=== PATIENT | female | born 2000 | race Caucasian/White ===

== ENCOUNTER 2020-06-04 14:28 | Outpatient (REF) | payer OTHER, SELFPAY ==
[2020-06-04 17:22] LABS: Syphilis Screen Nonreactive (Nonreactive)
[2020-06-05 13:50] LABS: BV Int Neg Control Negative (Negative); BV Int Pos Control Positive (Positive)
[2020-06-05 15:30] LABS: CT PCR NOT DETECTED (Not Detect.); NG PCR NOT DETECTED (Not Detect.)
[2020-06-07 08:05] LABS: HBsAGNum1 0.17 S/CO (0.00-0.99); Hepatitis B Surface Antigen Negative (Negative)
[2020-06-07 08:33] LABS: HIV AB/AG Nonreactive (Nonreactive); HIV Num 1 0.16 S/CO (0.00-0.99); ~HepC Num1 0.08 S/CO (0.00-0.79); ~Hepatitis C Antibody Nonreactive (Nonreactive)
== END 2020-06-04 14:29 | disposition home or self-care (01) ==
LOC: HO.LAB 14:28
PROVIDERS: Referring Provider Internal Medicine Cardiovascular Disease; Visit Provider Advanced Practice Midwife
DX: Z01.419 Encounter for gynecological examination (general) (routine) without abnormal findings (principal); Z30.09 Encounter for other general counseling and advice on contraception; Z20.2 Contact with and (suspected) exposure to infections with a predominantly sexual mode of transmission
CPT/HCPCS: 86780; 86803; 87340; 87389; 87480; 87491; 87510; 87591; 87660

== ENCOUNTER 2021-06-07 15:13 | Outpatient (REF) | payer OTHER, SELFPAY ==
[2021-06-08 13:10] LABS: BV Int Neg Control Negative (Negative); BV Int Pos Control Positive (Positive)
[2021-06-08 13:27] LABS: CT PCR NOT DETECTED (Not Detect.); NG PCR NOT DETECTED (Not Detect.)
== END 2021-06-07 15:14 | disposition home or self-care (01) ==
LOC: HO.LAB 15:13
PROVIDERS: Visit Provider Advanced Practice Midwife
DX: Z01.411 Encounter for gynecological examination (general) (routine) with abnormal findings (principal); N89.8 Other specified noninflammatory disorders of vagina; N92.1 Excessive and frequent menstruation with irregular cycle; Z20.2 Contact with and (suspected) exposure to infections with a predominantly sexual mode of transmission; Z97.5 Presence of (intrauterine) contraceptive device
CPT/HCPCS: 87480; 87491; 87510; 87591; 87660

== ENCOUNTER → 2021-10-25 14:58 | Outpatient (BNVA) | payer OTHER, SELFPAY | PROVIDERS: Referring Provider Internal Medicine; Visit Provider Internal Medicine Cardiovascular Disease | DX: Z01.810 Encounter for preprocedural cardiovascular examination (principal); I47.1 Supraventricular tachycardia | CPT/HCPCS: 93005 ==

== ENCOUNTER 2022-10-19 14:11 | Outpatient (REF) | payer OTHER, SELFPAY ==
[2022-10-20 02:27] LABS: CT PCR NOT DETECTED (Not Detect.); NG PCR NOT DETECTED (Not Detect.)
[2022-10-20 09:06] LABS: BV Int Neg Control Negative (Negative); BV Int Pos Control Positive (Positive)
== END 2022-10-19 14:12 | disposition home or self-care (01) ==
LOC: HO.LNP 14:11
PROVIDERS: PCP Internal Medicine; Visit Provider Advanced Practice Midwife
DX: Z01.419 Encounter for gynecological examination (general) (routine) without abnormal findings (principal); N89.8 Other specified noninflammatory disorders of vagina; Z20.2 Contact with and (suspected) exposure to infections with a predominantly sexual mode of transmission
CPT/HCPCS: 0353U; 87480; 87510; 87660; 88142

== ENCOUNTER → 2022-10-31 15:00 | Outpatient (BNVA) | payer OTHER, SELFPAY | PROVIDERS: PCP Internal Medicine; Referring Provider Internal Medicine; Visit Provider Internal Medicine Cardiovascular Disease | DX: I47.1 Supraventricular tachycardia (principal) | CPT/HCPCS: 93005 ==

== ENCOUNTER → 2022-12-12 09:25 | Outpatient (BNVA) | payer OTHER, SELFPAY | PROVIDERS: PCP Internal Medicine; Visit Provider Advanced Practice Midwife | DX: Z30.46 Encounter for surveillance of implantable subdermal contraceptive (principal) | CPT/HCPCS: 11982; 58300; 58301; 81025 ==

== ENCOUNTER → 2022-12-20 08:08 | Outpatient (BNVA) | payer OTHER, SELFPAY | PROVIDERS: PCP Internal Medicine; Referring Provider Advanced Practice Midwife; Visit Provider Surgery ==

== ENCOUNTER 2022-12-26 15:14 | Outpatient (REF) | payer OTHER, SELFPAY ==
[2022-12-27 14:31] LABS: CT PCR NOT DETECTED (Not Detect.); NG PCR NOT DETECTED (Not Detect.)
[2022-12-28 09:20] LABS: BV Int Neg Control Negative (Negative); BV Int Pos Control Positive (Positive)
== END 2022-12-26 15:15 | disposition home or self-care (01) ==
LOC: HO.LAB 15:14
PROVIDERS: PCP Internal Medicine; Visit Provider Advanced Practice Midwife
DX: N90.89 Other specified noninflammatory disorders of vulva and perineum (principal); N89.8 Other specified noninflammatory disorders of vagina
CPT/HCPCS: 0353U; 81003; 87255; 87480; 87510; 87660

== ENCOUNTER 2022-12-26 16:01 | Outpatient (REF) | payer OTHER, SELFPAY | END 2022-12-26 16:02 | disposition home or self-care (01) | LOC: HO.LNP 16:01 | PROVIDERS: Visit Provider Advanced Practice Midwife | DX: Z13.89 Encounter for screening for other disorder (principal) ==

== ENCOUNTER 2023-01-09 14:57 | Outpatient (REF) | payer OTHER, SELFPAY | END 2023-01-09 14:58 | disposition home or self-care (01) | LOC: HO.LNP 14:57 | PROVIDERS: PCP Internal Medicine; Visit Provider Advanced Practice Midwife | DX: Z30.017 Encounter for initial prescription of implantable subdermal contraceptive (principal); N76.3 Subacute and chronic vulvitis | CPT/HCPCS: 11981; 81025; 87070; 87077; 87102; 87147; 87186; 87205; J7307 ==

== ENCOUNTER 2023-02-07 15:37 | Outpatient (AMB) | payer OTHER, SELFPAY ==
--- NOTE | 2023-02-07 15:38 | A.OFFVIS_ITS ---
Intake Vital Signs 02/07/23 15:39 Height 5 ft 9 in Weight 177 lb BMI 26.1 BP 112/70 Intake Visit Reasons: Nexplanon Check/30 mins Intake Note: The patient agreed to use of a medical or surgical instrument maker during this encounter. Scribed for CINTHIA Chen by Haley Sol, medical or surgical instrument maker, on 02/07/2023 at 3:44 pm EST. Allergies No Known Allergies Allergy (Verified 02/07/23 15:38) Is last menstrual period known: Yes Last menstrual period: 01/22/23 HPI HPI Comments History of Present Illness Details She is here for Nexplanon surveillance, and follow up for her chronic vulvar irritation. Fungal culture pending on the last of 4 weekly reports. Reports vulvar irritation, uses Aquaphor and believes it is improving. Vulvar check/eval. offered; she declines. She is doing well with Nexplanon. No concerns with bleeding. Site has healed well. Recent UTI treated by her PCP. [facility] Medical History (Updated 02/07/23 @ 16:19 by Haley Sol) Aftrcre teeth/oral/dig sys surg Chronic vulvitis Palpitation SVT (supraventricular tachycardia) Social History Alcohol intake: current Alcohol intake frequency: a few times a month Alcohol type: beer and wine Patient Tobacco Use Status: Never used Tobacco Gender identity: Female Female Reproductive History Menstrual Age of Menarche: 14 Date of last menstrual period: 01/22/23 control method: implanted (Nexplanon 01/09/23) Total pregnancies: 0 Physical Exam Vital Signs: Last Vital Signs BP 112/70 02/07/23 15:39 BMI result Body Mass Index 26.1 Const General: cooperative, healthy appearing, comfortable, no acute distress, well developed, alert and awake Extrem Other: implant is palpable, site is well healed and non tender. General: Yes normal to inspection Assessment & Plan Assessment & Plan (1) Chronic vulvitis: Code(s): N76.3 - Subacute and chronic vulvitis (2) Encounter for surveillance of Nexplanon subdermal contraceptive: Code(s): Z30.46 - Encounter for surveillance of implantable subdermal contraceptive Plan: Discussed: Monitor periods and weight. Maintain a healthy lifestyle including a well ken dana diet and routine exercise. Instructed to contact office with any prolonged or heavy bleeding for further recommendations, Instructed to always use condoms for STD prevention. Recommend organic or hypoallergenic menstrual pads and coat with Aquaphor. All of her questions and concerns were addressed to the best of my ability and shared decision making. She is agreeable to plan of care. Coding Level of Care Code Est Pt Level 3 (24503) Diagnoses Chronic vulvitis N76.3 Encounter for surveillance of Nexplanon subdermal contraceptive Z30.46
[2023-02-07 15:39] VITALS: BP 112/70; BMI 26.1
== END 2023-02-07 16:19 | disposition home or self-care (01) ==
LOC: HO.HWS 15:37
PROVIDERS: PCP Internal Medicine; Visit Provider Advanced Practice Midwife
DX: N76.3 Subacute and chronic vulvitis (principal); Z30.46 Encounter for surveillance of implantable subdermal contraceptive
CPT/HCPCS: 99213

== ENCOUNTER → 2023-02-07 15:37 | Outpatient (BNVA) | payer OTHER, SELFPAY | PROVIDERS: PCP Internal Medicine; Visit Provider Advanced Practice Midwife ==

== ENCOUNTER 2023-11-05 14:47 | Outpatient (AMB) | payer OTHER, SELFPAY ==
--- NOTE | 2023-11-05 14:50 | A.OFFVIS_ITS ---
Vital Signs 11/05/23 14:52 Height 5 ft 9 in Weight 187 lb BMI 27.6 BP 108/72 Intake Visit Reasons: annual Sheriff Sergeant Required: No Information Interpreted: non-clinical & clinical Small Business Banking Officer: Small Business Banking Officer Present (Markosyn) Allergies No Known Allergies Allergy (Verified 11/05/23 14:53) Medication List - Last Reconciled 11/05/23 by Mikayla Pacheco CNM diphenhydramine HCl (Benadryl) 25 mg PO Q6H PRN etonogestrel (Nexplanon) subdermal fexofenadine (Vero Allergy) 180 mg PO DAILY Is last menstrual period known: No (no menses Nexplanon) Post menopausal: No HPI HPI annual: Details: 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 She is open to testing she has not having any issues though she has her 3rd Nexplanon in and she is happy with it she once in a while being gets a random period, But it is okay and she gets a little warning. She recently had new nipple piercings please so her nipples are normal sensitive. Her previous Nexplanon needed to be by surgery because it is a little bit deep. [facility] Medical History (Updated 11/05/23 @ 15:36 by Mikayla Pacheco CNM) Hx of drainage of abscess Chronic vulvitis SVT (supraventricular tachycardia) Palpitation Aftrcre teeth/oral/dig sys surg Social History (Updated 11/05/23 @ 14:55 by DORIAN Martins) Alcohol intake: current Alcohol intake frequency: a few times a month Alcohol type: beer and wine Patient Tobacco Use Status: Never used Tobacco e-Cigarette/Vaping Use: Currently Using Gender identity: Female Female Reproductive History Menstrual Age of Menarche: 14 Duration of menses: 3-5 days control method: implanted Total pregnancies: 0 Date of last pap smear: 10/20/22 (negative) History of abnormal pap smear: No Physical Exam Vital Signs: Last Vital Signs BP 108/72 11/05/23 14:52 BMI result Body Mass Index 27.6 Const Other: Patient has Nexplanon is currently in her right arm and it is again somewhat deep to palpation. This is her 3rd. General: healthy appearing, comfortable, no acute distress, well developed and alert Nutritional Appearance: average body habitus Orientation/consciousness: patient oriented x3 Limitations: no limitations HEENT Head: Yes normocephalic Neck Neck: Yes normal visual inspection Chest Chest palpation & inspection: normal inspection of the chest Breast/axilla inspection: normal inspection of the breasts and normal inspection of the axillae Breast/axilla palpation: normal palpation of the breasts and normal palpation of the axillae Resp Effort & Inspection: normal respiratory effort GI Inspection: Yes normal to inspection, No Abdominal wall edema and No distended Palpation (GI): Soft to palpation and nontender Other: There is a tiny little white Fissure in the epithelium at the introitus consistent with chronic moisture however the patient says she does not wear panty liners and does not have any issue with increased discharge. Its not painful and not itchy. It is absolutely not consistent with a herpetic lesion. Discussed that sometimes if the whitish area were to expand and spread it might be consistent something called lichen sclerosis what it is not symptomatic were consistent with that at this moment. Nulliparous cervix pink and healthy with normal appearing healthy mucous, uterus small deep difficult to palpate completely but not enlarged and nontender good tone with Kegel. General: Yes bladder normal to palpation External Female Exam: normal external appearance and normal appearance of the urethra Speculum Exam - Vagina: normal appearance of the vagina, normal palpation and normal vaginal discharge Speculum Exam - Cervix: normal appearance of the cervix, normal palpation and nontender Bimanual exam- vagina & uterus: normal bimanual exam, normal palpation, uterine size normal, bladder normal to palpation, consistency normal, normal palpation, uterine mobility normal, uterine shape normal, No Cervical tenderness present, non-tender and no cervical motion tenderness Bimanual Exam- Adnexa, other: normal adnexae, no masses, normal and No adnexal tenderness Neuro General: patient oriented x3 Results Reviewed Results Reviewed: Previous Pap negative. Name: Sri Jackson Age/Sex: 22/F Attending: Mikayla Pacheco CNM : 2000 Submitted by: Mikayla Pacheco CNM Copies to: Kannan Hart MD MR #: [id number] Status: DEP REF Collected: 10/19/22 Location: [facility] Received: 10/20/22 Interpretation Satisfactory for evaluation. Negative for intraepithelial lesion or malignancy. Clinical Information LMP: 10/15/22 Previous PAP test: 06/09/19, WNL Material Received ThinPrep-Cervical Copies To Mikayla Pacheco [address] Xavier [address] [place] [id number] Kannan Hart MD [address] [place] [address] Electronically Signed By: Tere Chew 10/30/22 9813 The Pap Test is a screening procedure with the inherent possibility of both false negative and false positive results. Results should be interpreted in the context of historic and current clinical findings. Reliability of the Pap Test is enhanced by performing the test on a regular repetitive basis. Patient: Sri Jackson Age/Sex: 22/F MR#: [id number] Page 1 of 1 Assessment & Plan Assessment & Plan (1) Encounter for surveillance of Nexplanon subdermal contraceptive: Comment: Previous Nexplanon inserted 01/02/2020 her BM. Removed by surgery. Present Nexplanon inserted 01/09/2023 BM. Code(s): Z30.46 - Encounter for surveillance of implantable subdermal contraceptive Category: Medical (2) Cervical cancer screening: Comment: Previous Pap-2018 Pap done 10/19/2022= negative. Code(s): Z12.4 - Encounter for screening for malignant neoplasm of cervix Category: Medical (3) Well woman exam with routine gynecological exam: Code(s): Z01.419 - Encounter for gynecological examination (general) (routine) without abnormal findings Category: Medical Plan -----Discussed in this visit the following: healthy balanced diet, regular and consistent exercise, getting recommended health screens, doing the best she can for her particular health concerns, kegel exercises, pap smear screening and followup recommendations, mammography screening and SBE, normal changes in cycles in her life stage--- . Reviewed her content with the Nexplanon she is happy with it her 3rd. This 1 feels slightly deep per this provider suggest that whenever this 1 is due to be removed she returned to the inserting provider for removal . -patient had no need for blood work for STIs Testing for gonorrhea chlamydia trichomoniasis Gardnerella and Komal was done. Discharge appeared completely normal and healthy Safer sex discussed Discussed the tiny fissure at her introitus that appears consistent with moisture she is not a panty liner where and does not have excessive discharge so no cause particularly could be found she does not wear underwear at night which is good it allows ear to her vulva. Discussed that it is in no way consistent with a herpetic lesion and if the whiteness were to expand there might be some question about lichen sclerosis but not at this point. RTC 1 year. Orders: Orders Bacterial Vaginosis Panel Today Z20.2 - Contact with and (suspected) exposure to infections with a predominantly sexual mode of transmission CT NG by PCR Today Z20.2 - Contact with and (suspected) exposure to infections with a predominantly sexual mode of transmission
[2023-11-05 14:52] VITALS: BP 108/72; BMI 27.6
== END 2023-11-05 15:25 | disposition home or self-care (01) ==
LOC: HO.HWSM 14:47
PROVIDERS: PCP Internal Medicine; Visit Provider Advanced Practice Midwife
DX: Z30.46 Encounter for surveillance of implantable subdermal contraceptive (principal); Z12.4 Encounter for screening for malignant neoplasm of cervix; Z01.419 Encounter for gynecological examination (general) (routine) without abnormal findings
CPT/HCPCS: 99395

== ENCOUNTER 2023-11-05 14:47 | Outpatient (REF) | payer OTHER, SELFPAY ==
[2023-11-06 06:44] LABS: CT PCR NOT DETECTED (Not Detect.); NG PCR NOT DETECTED (Not Detect.)
[2023-11-06 13:18] LABS: BV Int Neg Control Negative (Negative); BV Int Pos Control Positive (Positive)
== END 2023-11-05 14:48 | disposition home or self-care (01) ==
LOC: HO.LNP 14:47
PROVIDERS: PCP Internal Medicine; Visit Provider Advanced Practice Midwife
DX: Z20.2 Contact with and (suspected) exposure to infections with a predominantly sexual mode of transmission (principal)
CPT/HCPCS: 0353U; 87480; 87510; 87660

== ENCOUNTER 2024-09-25 10:04 | Outpatient (AMB) | payer OTHER, SELFPAY ==
[2024-09-25 10:34] VITALS: BP 108/72; PULSE 88; BMI 28.4
--- NOTE | 2024-09-25 10:34 | MHC.OFFVIS ---
Vital Signs 09/25/24 10:34 Height 5 ft 9 in Weight 192 lb 3.889 oz BMI 28.4 BP 108/72 Blood Pressure Location Lt brachial Position Sitting Pulse 88 Pulse Source Monitor Intake Visit Reasons: Clearance/Orthognathic surgery/-2 Spring Inspector Required: No Allergies No Known Allergies Allergy (Verified 09/25/24 10:36) Medication List - Last Reconciled 09/25/24 by Sienna Chavarria, ASSISTANT PASSENGER LOCOMOTIVE ENGINEER-C diphenhydramine HCl (Benadryl) 25 mg PO Q6H PRN etonogestrel (Nexplanon) subdermal HPI HPI Clearance/Orthognathic surgery/2: Details: Sri is a 24 yr old female with PMH of SVT who presents for followup and preop cardiac evaluation. Her last prior visit to our office was 06/02/23. Today she reports that she has been doing well with no recurrent heart palpitations/ SVT episodes. She is drinking 1 caffinated beverage per day. No chest pains, sob, lightheadedness. Good activity tolerance. [facility] Medical History Hx of drainage of abscess Chronic vulvitis SVT (supraventricular tachycardia) Palpitation Aftrcre teeth/oral/dig sys surg Social History Alcohol intake: current Alcohol intake frequency: a few times a month Alcohol type: beer and wine Patient Tobacco Use Status: Never used Tobacco e-Cigarette/Vaping Use: Currently Using Gender identity: Female Female Reproductive History Menstrual Age of Menarche: 14 Review of Systems Const All systems reviewed & are unremarkable except as noted in HPI and below ENT Denies dizziness Card Denies chest pain, Denies chest pain at rest, Denies chest pain with activity, Denies rapid heart rate, Denies pedal edema, Denies edema, Denies leg edema, Denies lightheadedness, Denies palpitations, Denies dyspnea, Denies dyspnea on exertion and Denies orthopnea Resp Denies cough, Denies dyspnea and Denies dyspnea on exertion GI Denies hematochezia and Denies change in stool character Musc Denies abnormal gait, Denies limited range of motion, Denies muscle cramps, Denies muscle weakness, Denies numbness, Denies radiating pain into limb, Denies stiffness and Denies tingling Neuro Denies abnormal gait, Denies dizziness, Denies numbness and Denies tingling Endo Denies palpitations Physical Exam Vital Signs: Last Vital Signs Pulse 88 09/25/24 10:34 BP 108/72 09/25/24 10:34 BMI result Body Mass Index 28.4 Const General: cooperative, healthy appearing, comfortable and no acute distress Orientation/consciousness: patient oriented x3 Resp Effort & Inspection: normal respiratory effort Auscultation: clear to auscultation bilaterally, no rales, no rhonchi and no wheezes Cardio Rate: regular rate Rhythm: regular rhythm Heart sounds: S1 normal heart sound present, S2 normal heart sound present, no gallops, no murmurs and no rubs Neuro General: patient oriented x3 Extrem General: Yes normal to inspection and No no pedal edema Psych Appearance: grossly normal Mental Status: mental status grossly normal Speech and movement: Normal speech and movement present Office Procedures EKG Details: Today, read by me, SR with SA, rate 88, normal TX, QTc, QRS [id number], Complete Assessment & Plan Assessment & Plan (1) SVT (supraventricular tachycardia): Code(s): I47.1 - Supraventricular tachycardia Category: Medical Plan: Hx of SVT with no clinically recurrent episodes in the last year. EKG today shows normal sinus rhythm with sinus arrythmia, normal TX, QRS and QTc, rate 88. Vagal maneuvers reviewed. Recommended limiting caffienated beverages to one per day. ED care if every needed for sustained rapid palpitations, Cardiology OV in 2 yrs, sooner if needed (2) Preop cardiovascular exam: Code(s): Z01.810 - Encounter for preprocedural cardiovascular examination Category: Medical Plan: Preop for orthognathic surgery with Dr Blanton in [place]. Pt may proceed with low cardiac risk. Beta blockers can be used in the event of any recurrent SVT. Call/ cardiology if needed Plan Time spent on chart review, document, interview, assessment Coding Level of Care Code Est Pt Level 3 (86541) Complex EM visit Add On G2211 Diagnoses SVT (supraventricular tachycardia) I47.1 Preop cardiovascular exam Z01.810 CPT Codes EKG - CPT: 76706-[id number], Complete ([id number]) Time Spent (min) 22
--- OUTSIDE RECORDS SUMMARY | 2024-09-25 12:28 | XMS_ITS | Continuity of Care Document ---
Author Organization [facility] Address [address] [place] [address] [address] [place] [address]- Care Team Providers Care Licensed Insurance Sales Agent Name Role Phone Kannan Hart MD Primary Care Physician Unavai labmajo Encounter [facility] Date(s): 08/01/24 - 08/31/24 [facility] [address] [place] [id number]- Attending Physician: Admtr, Ar8 Admitting Physician: Admtr, Ar8 Referring Physician: Admtr, Ar8 Encounter Type: Triage Allergies, Adverse Reactions, Alerts Substance Criticality Severity Reaction Reaction Severity Status Other Environmental Allergy Active Giles Active Immunizations Given and Recorded Vaccine Date Status Refusal Reason SARS-CoV-2 (COVID-19) mRNA BNT-162b2 vac 09/03/20 Recorded SARS-CoV-2 (COVID-19) mRNA BNT-162b2 vac 08/13/20 Recorded Medications Vero 24 Hour Allergy oral tablet 1 tablet, By Mouth, Daily, # 90 tablet, 0 Refills, Maintenance, 06/02/22 3:00:00 PM EST, Tablet, Partial fill upon patient request if the prescription is for a schedule II opioid drug. Start Date: 06/02/22 Status: Ordered Quantity: 90.0 Unit: Repeat number: 1 Benadryl 25 mg oral capsule 2 capsule = 50 mg, By Mouth, Daily at bedtime, 0 Refills, Maintenance, 11/07/23 2:02:00 PM EDT, Partial fill upon patient request if the prescription is for a schedule II opioid drug. Start Date: 11/07/23 Status: Ordered Repeat number: 1 diphenhydrAMINE 25 mg oral tablet 1 capsule, By Mouth, Every 4 hours, PRN as needed for allergy symptoms, # 30 capsule, 0 Refills, Maintenance, 09/02/21 2:32:00 PM EST, Capsule, Partial fill upon patient request if the prescription isfor a schedule II opioid drug. Start Date: 09/02/21 Stop Date: 10/02/21 Status: Ordered Quantity: 30.0 Unit: capsule Repeat number: 1 Nexplanon = 68 mg, Subcutaneous Infusion, Once, 0 Refills, Maintenance, 11/07/23 2:02:00 PM EDT, Partial fill upon patient request if the prescription is for a schedule II opioid drug. Start Date: 11/07/23 Status: Ordered Repeat number: 1 Nexplanon 68 mg subcutaneous implant 1 each = 68 mg, Subcutaneous Infusion, Once, 0 Refills, Maintenance, 09/02/21 2:31:00 PM EST, Partial fill upon patient request if the prescription is for a schedule II opioid drug. Start Date: 09/02/21 Status: Ordered Repeat number: 1 Problem List Condition Confirmation Course Effective Dates Status Health St atus Informant SVT (supraventricular tachycardia) Confirmed Active Social History Social History Type Response Smoking Status Never (less than 100 in lifetime) entered on: 09/02/21 Sex Sex Representation Female (finding) Patient Care team information Care Team Personnel Name: Kannan Hart MD Position: S Physician - Primary Care Member Role: PCP Care Team Related Persons Name: JANENE RAMOS Name: JOAN NADERSON Name: JOAN ANDERSON Name: ALVAREZ GARVIN Insurance Providers Guarantor name: ANGEL RAMOS Health Plan Information #: 1 Payer: BLUE BENEFIT [employer] PPO Member Number: NA Policy Number: NA Group Number: NA
== END 2024-09-25 11:09 | disposition home or self-care (01) ==
LOC: HO.HCS 10:04
PROVIDERS: PCP Internal Medicine; Visit Provider Nurse Practitioner Family
DX: I47.10 Supraventricular tachycardia, unspecified (principal); Z01.810 Encounter for preprocedural cardiovascular examination
CPT/HCPCS: 93010; 99213

== ENCOUNTER → 2024-09-25 10:04 | Outpatient (BNVA) | payer OTHER, SELFPAY | PROVIDERS: PCP Internal Medicine; Visit Provider Nurse Practitioner Family | DX: Z01.810 Encounter for preprocedural cardiovascular examination (principal); I47.10 Supraventricular tachycardia, unspecified | CPT/HCPCS: 93005 ==